=== PATIENT | female | born 1970 | race Caucasian/White ===

== ENCOUNTER → 2016-10-20 | Outpatient (CLI) | payer OTHER ==
[~2016-10-20] MED LIST: ASPI-515 PO; DOCU100C8 PO; FEXO180T72 PO; FURO20TA3 PO; LEVO75TA5 PO; OXYC5TAB3 PO; PANT40TA3 PO; POTA10CA PO; POTA10TA11 PO; SERT100T5 PO; WARF2.5T73 PO
== END | disposition home or self-care (01) ==
LOC: CFH 08:51
PROVIDERS: ATTEND Internal Medicine Cardiovascular Disease
DX: I08.3 Combined rheumatic disorders of mitral, aortic and tricuspid valves (principal); Q21.2 Atrioventricular septal defect; Z95.2 Presence of prosthetic heart valve
CPT/HCPCS: 93306

== ENCOUNTER 2016-11-21 11:13 | Emergency (ER) | payer OTHER ==
[~2016-11-21] VITALS: Ht 157.5 cm; Wt 91.9 kg
[~2016-11-21 11:13] MED LIST changes: +DOCU100C33 PO; -DOCU100C8 PO
[2016-11-21 11:14] VITALS: BP 136/84
== END 2016-11-21 14:13 | disposition home or self-care (01) ==
LOC: ED 14:00
DX: B34.9 Viral infection, unspecified (principal); Z88.2 Allergy status to sulfonamides
CPT/HCPCS: 71020; 93005; 99284

== ENCOUNTER 2017-04-28 11:30 | Inpatient (IN) | payer OTHER ==
[~2017-04-28] VITALS: Ht 160 cm; Wt 94.0 kg
[2017-04-28 12:37] LABS: MICROSCOPIC NOT IND
[2017-04-28 12:37] LABS: BASOPHILS # (AUTO) 0.03 x10^3/uL (0-0.1); BASOPHILS % (AUTO) 0 % (0-1); EOSINOPHILS # (AUTO) 0.17 x10^3/uL (0-0.4); EOSINOPHILS % (AUTO) 2 % (1-7); LYMPHOCYTES # (AUTO) 2.22 x10^3/uL (1-3.4); LYMPHOCYTES % (AUTO) 30 % (22-44); MD NO; MEAN CORPUSCULAR HEMOGLOBIN 26.2 pg (27.0-34.8); MEAN CORPUSCULAR HGB CONC 32.7 g/dL (32.4-35.8); MEAN CORPUSCULAR VOLUME 80.2 fL (80-100); MEAN PLATELET VOLUME 8.5 fL (7.4-10.4); MONOCYTES # (AUTO) 0.57 x10^3/uL (0.2-0.8); MONOCYTES % (AUTO) 8 % (2-9); NEUTROPHILS # (AUTO) 4.44 x10^3/uL (1.8-6.8); NEUTROPHILS % (AUTO) 60 % (42-75); PLATELET COUNT 321 x10^3/uL (130-400); RED BLOOD COUNT 4.22 x10^6/uL (3.82-5.3); RED CELL DISTRIBUTION WIDTH 16.6 % (9.6-15.2)
[2017-04-28 12:39] LABS: HCG UR SG 1.025 (1.003-1.030)
[2017-04-28 12:40] LABS: INTERNATIONAL NORMALIZED RATIO 1.02 (0.93-1.1); PROTHROMBIN TIME 10.5 Seconds (9.6-11.5)
[2017-04-28 12:47] LABS: CHLORIDE 109 mmol/L (98-107)
[2017-04-28 12:56] LABS: ALANINE AMINOTRANSFERASE 26 U/L (12-78); ALBUMIN 3.6 g/dL (3.4-5.0); ALKALINE PHOSPHATASE 68 U/L (45-117); ANION GAP 8 mmol/L (5-15); BILIRUBIN,TOTAL 0.3 mg/dL (0.2-1.0); CALCIUM 8.3 mg/dL (8.5-10.1); CREATININE 0.71 mg/dL (0.55-1.02); TOTAL PROTEIN 7.3 g/dL (6.4-8.2)
[2017-04-28 12:58] LABS: HEMOGLOBIN A1C 6.4 % (4.2-6.3)
[2017-04-29 05:12] VITALS: BP_SYST 134; BP_SYST 135; BP_DIAS 82; BP_DIAS 87
[2017-04-29] MEDS ORDERED: ALBUMIN HUMAN 5% 500 ML IV PRN (05:30)
[2017-04-29] MEDS ORDERED: CHLORHEXIDINE 15 ML BOTTLE MM SCH ×2 (06:00→09:00)
[2017-04-29] MEDS: INSULIN LISPRO 100 UNITS/ML, PEN SQ-INSULIN SCH ×7 (06:04→22:35)
[2017-04-29] MEDS: SODIUM CHLORIDE FLUSH 10ML SYR IVF SCH ×4 (06:07→19:30)
[2017-04-29] MEDS ORDERED: MIDAZOLAM 10MG/2 ML ONE (06:40)
[2017-04-29] MEDS ORDERED: FENTANYL PF 1000 MCG/20ML ONE (06:49)
[2017-04-29] MEDS ORDERED: VASOPRESSIN 50 UNIT in SODIUM CHLORIDE 0.9% 250 ML IV PRN (07:22)
[2017-04-29] MEDS ORDERED: PHENYLEPHRINE 10 MG in SODIUM CHLORIDE 0.9% 249 ML IV PRN ×2 (07:22→07:30)
[2017-04-29] MEDS ORDERED: NITROGLYCERIN/D5W PMX 240 ML IV PRN (07:22)
[2017-04-29] MEDS ORDERED: DEXMEDETOMIDINE 200 MCG in SODIUM CHLORIDE 0.9% 48 ML IV PRN (07:22)
[2017-04-29] MEDS ORDERED: DOBUTAMINE 250 MG in SODIUM CHLORIDE 0.9% 230 ML IV PRN (07:22)
[2017-04-29] MEDS ORDERED: REGULAR INSULIN 62.5 UNITS in SODIUM CHLORIDE 0.9% 249.375 ML IV PRN ×2 (07:22→07:30)
[2017-04-29] MEDS ORDERED: ONDANSETRON 2MG/ML, 2ML IVPush PRN (07:30)
[2017-04-29] MEDS ORDERED: MIDAZOLAM 1 MG/ML, 5ML IVPush PRN (07:30)
[2017-04-29] MEDS ORDERED: HYDROcodone/APAP 5/325 TABLET PO PRN (07:30)
[2017-04-29] MEDS ORDERED: INSULIN REGULAR 100 UNITS/ML, 3ML VIAL IVPush PRN (07:30)
[2017-04-29] MEDS ORDERED: DEXTROSE 4 GM TAB.CHEW PO PRN (07:30)
[2017-04-29] MEDS ORDERED: FENTANYL PF 100 MCG/2ML IVPush PRN (07:30)
[2017-04-29] MEDS ORDERED: ACETAMINOPHEN 650 MG SUPP PR PRN (07:30)
[2017-04-29] MEDS ORDERED: DEXMEDETOMIDINE 200 MCG in SODIUM CHLORIDE 0.9% 48 ML IV SCH (07:30)
[2017-04-29] MEDS ORDERED: GLUCAGON 1 MG IM PRN (07:30)
[2017-04-29] MEDS ORDERED: HYDROcodone/APAP 10/325 MG TABLET PO PRN (07:30)
[2017-04-29] MEDS ORDERED: POTASSIUM CHLORIDE 80 MEQ, SODIUM BICARBONATE 8.4% 10 MEQ, MAGNESIUM SULFATE 0.5 GM, LI... IV PRN (07:30)
[2017-04-29] MEDS ORDERED: EPINEPHRINE 2 MG in SODIUM CHLORIDE 0.9% 248 ML IV SCH (07:30)
[2017-04-29] MEDS ORDERED: VANCOMYCIN 1,400 MG in SODIUM CHLORIDE 0.9% 250 ML IV PRN (07:30)
[2017-04-29] MEDS ORDERED: ACETAMINOPHEN 325 MG TABLET PO PRN (07:30)
[2017-04-29] MEDS ORDERED: DEXTROSE 50%, 50ML SYRINGE IVPush PRN (07:30)
[2017-04-29] MEDS ORDERED: PROCHLORPERAZINE 5 MG/ML, 2ML IVPush PRN (07:30)
[2017-04-29] MEDS ORDERED: BISACODYL 10 MG SUPP PR PRN (07:30)
[2017-04-29] MEDS ORDERED: BISACODYL 5 MG EC TABLET PO PRN (07:30)
[2017-04-29] MEDS ORDERED: LACTATED RINGERS 500 ML IV PRN (07:30)
[2017-04-29] MEDS ORDERED: CEFUROXIME 1.5 GM in SODIUM CHLORIDE 0.9% 50 ML IVPB PRN (07:30)
[2017-04-29] MEDS ORDERED: EPINEPHRINE 2 MG in SODIUM CHLORIDE 0.9% 248 ML IV PRN (07:30)
[2017-04-29] MEDS ORDERED: morphine SULFATE 10 MG/ML, 1ML IVPush PRN (07:30)
[2017-04-29] MEDS ORDERED: MANNITOL PMX 20% 500 ML IVPB PRN (07:30)
[2017-04-29] MEDS: MUPIROCIN OINT 2%, 22GM NAS SCH ×2 (09:00→19:23)
[2017-04-29] MEDS ORDERED: MUPIROCIN OINT 2%, 22GM TP SCH (09:00)
[2017-04-29] MEDS: DOCUSATE 100 MG CAPSULE PO SCH ×2 (09:00→19:23)
[2017-04-29] MEDS ORDERED: SODIUM CHLORIDE 0.9% 1,000 ML IV PRN (10:00)
[2017-04-29] MEDS ORDERED: ROCURONIUM 10 MG/ML,10ML ONE (10:29)
[2017-04-29] MEDS ORDERED: PROPOFOL 10 MG/ML, 20ML ONE (10:29)
[2017-04-29] MEDS ORDERED: PROTAMINE SULFATE 10 MG/ML, 25ML ONE ×2 (10:30)
[2017-04-29] MEDS ORDERED: CALCIUM CHLORIDE 10%, 10ML SYR ONE ×2 (11:16)
[2017-04-29] MEDS: KSCALE TO 4.5 IV SCH ×2 (12:30→18:30)
[2017-04-29 12:41] LABS: GLUCOSE BY BLOOD GAS ANALYZER 157 mg/dL (70-110); POTASSIUM BY BLOOD GAS ANALYZR 3.3 mmol/L (3.6-5.5)
[2017-04-29] MEDS: SODIUM BICARB 8.4%, 50ML SYRINGE IV PRN ×5 (12:47→18:29)
[2017-04-29 12:51] LABS: INTERNATIONAL NORMALIZED RATIO 1.15 (0.93-1.1); PROTHROMBIN TIME 11.8 Seconds (9.6-11.5)
[2017-04-29] MEDS ORDERED: POTASSIUM CHLORIDE 30 MEQ in SODIUM CHLORIDE 0.9% 100 ML IV ONE (13:30)
[2017-04-29] MEDS: MAGNESIUM SULFATE 1 GM in SODIUM CHLORIDE 0.9% 50 ML IVPB SCH (13:55)
[2017-04-29] MEDS: CEFUROXIME 1.5 GM in SODIUM CHLORIDE 0.9% 50 ML IVPB SCH (19:21)
[2017-04-29] MEDS: OXYcodone IR 5MG TABLET PO PRN ×2 (19:23→22:38)
[2017-04-29] MEDS: VANCOMYCIN 1,400 MG in SODIUM CHLORIDE 0.9% 250 ML IVPB SCH (20:36)
[2017-04-29] MEDS: CHLORHEXIDINE 15 ML BOTTLE MM SCH (22:34)
[2017-04-30] MEDS: KSCALE TO 4.5 IV SCH ×2 (00:30→06:30)
[2017-04-30] MEDS: INSULIN LISPRO 100 UNITS/ML, PEN SQ-INSULIN SCH ×5 (02:16→21:30)
[2017-04-30 05:44] VITALS: BP 128/53
[2017-04-30] MEDS: CEFUROXIME 1.5 GM in SODIUM CHLORIDE 0.9% 50 ML IVPB SCH (06:10)
[2017-04-30] MEDS: OXYcodone IR 5MG TABLET PO PRN ×4 (06:10→22:52)
[2017-04-30 06:30] LABS: BASOPHILS # (AUTO) 0.01 x10^3/uL (0-0.1); BASOPHILS % (AUTO) 0 % (0-1); EOSINOPHILS % (AUTO) 0 % (1-7); LYMPHOCYTES # (AUTO) 1.32 x10^3/uL (1-3.4); LYMPHOCYTES % (AUTO) 8 % (22-44); MD NO; MEAN CORPUSCULAR HEMOGLOBIN 26.2 pg (27.0-34.8); MEAN CORPUSCULAR HGB CONC 32.5 g/dL (32.4-35.8); MEAN CORPUSCULAR VOLUME 80.5 fL (80-100); MEAN PLATELET VOLUME 8.8 fL (7.4-10.4); MONOCYTES # (AUTO) 1.05 x10^3/uL (0.2-0.8); MONOCYTES % (AUTO) 6 % (2-9); NEUTROPHILS # (AUTO) 15.26 x10^3/uL (1.8-6.8); NEUTROPHILS % (AUTO) 87 % (42-75); PLATELET COUNT 233 x10^3/uL (130-400); RED BLOOD COUNT 3.59 x10^6/uL (3.82-5.3); RED CELL DISTRIBUTION WIDTH 16.9 % (9.6-15.2)
[2017-04-30 06:35] LABS: INTERNATIONAL NORMALIZED RATIO 1.06 (0.93-1.1); PROTHROMBIN TIME 10.9 Seconds (9.6-11.5)
[2017-04-30 06:37] LABS: ANION GAP 6 mmol/L (5-15); CALCIUM 7.6 mg/dL (8.5-10.1); CHLORIDE 109 mmol/L (98-107); CREATININE 0.69 mg/dL (0.55-1.02)
[2017-04-30] MEDS ORDERED: KETOROLAC 30 MG/1 ML IVPush PRN (07:00)
[2017-04-30] MEDS ORDERED: WARFARIN MECH. VALVE PROTOCOL 2.5 to 3.5 XX PRN (08:00)
[2017-04-30] MEDS ORDERED: POTASSIUM CHLORIDE 20 MEQ TAB.ER.PRT PO SCH (08:00)
[2017-04-30] MEDS ORDERED: MAGNESIUM HYDROXIDE 8%, 30ML UDC PO PRN (08:00)
[2017-04-30] MEDS: VANCOMYCIN 1,400 MG in SODIUM CHLORIDE 0.9% 250 ML IVPB SCH (08:37)
[2017-04-30] MEDS: LEVOTHYROXINE 75 MCG TABLET PO SCH (08:56)
[2017-04-30] MEDS: SODIUM CHLORIDE FLUSH 10ML SYR IVF SCH ×2 (08:57→22:27)
[2017-04-30] MEDS: MUPIROCIN OINT 2%, 22GM NAS SCH ×2 (08:58→21:00)
[2017-04-30] MEDS: ASPIRIN 81 MG TABLET EC PO SCH (08:58)
[2017-04-30] MEDS: DOCUSATE 100 MG CAPSULE PO SCH ×2 (08:58→22:28)
[2017-04-30] MEDS: SERTRALINE 100MG TABLET PO SCH (08:58)
[2017-04-30] MEDS ORDERED: FUROSEMIDE 40 MG/4 ML IV SCH (09:00)
[2017-04-30] MEDS ORDERED: WARFARIN BIOPROSTHETIC VALVE PROTOCOL 2-3 XX SCH (09:00)
[2017-04-30] MEDS: MAGNESIUM SULFATE 1 GM in SODIUM CHLORIDE 0.9% 50 ML IVPB SCH (09:24)
[2017-04-30] MEDS: CHLORHEXIDINE 15 ML BOTTLE MM SCH ×2 (09:24→22:28)
[2017-04-30] MEDS: WARFARIN HIGH DOSE PROTOCOL XX SCH (12:00)
[2017-04-30] MEDS: HEPARIN 25,000 UNITS/500ML PMX 500 ML IV PRN (12:15)
[2017-04-30] MEDS ORDERED: WARFARIN 10 MG TABLET PO-COUM ONE (18:00)
[2017-04-30 19:20] VITALS: BP 121/71
[2017-05-01 00:19] VITALS: BP 122/76
[2017-05-01] MEDS: INSULIN LISPRO 100 UNITS/ML, PEN SQ-INSULIN SCH ×6 (01:30→21:54)
[2017-05-01] MEDS: LEVOTHYROXINE 75 MCG TABLET PO SCH (05:20)
[2017-05-01 05:43] LABS: BASOPHILS # (AUTO) 0.02 x10^3/uL (0-0.1); BASOPHILS % (AUTO) 0 % (0-1); EOSINOPHILS % (AUTO) 0 % (1-7); LYMPHOCYTES # (AUTO) 1.58 x10^3/uL (1-3.4); LYMPHOCYTES % (AUTO) 10 % (22-44); MD NO; MEAN CORPUSCULAR HEMOGLOBIN 26.2 pg (27.0-34.8); MEAN CORPUSCULAR HGB CONC 32.3 g/dL (32.4-35.8); MEAN CORPUSCULAR VOLUME 81.2 fL (80-100); MONOCYTES # (AUTO) 1.41 x10^3/uL (0.2-0.8); MONOCYTES % (AUTO) 9 % (2-9); NEUTROPHILS # (AUTO) 13.49 x10^3/uL (1.8-6.8); NEUTROPHILS % (AUTO) 82 % (42-75); PLATELET COUNT 202 x10^3/uL (130-400); RED BLOOD COUNT 3.35 x10^6/uL (3.82-5.3); RED CELL DISTRIBUTION WIDTH 16.3 % (9.6-15.2)
[2017-05-01 05:52] LABS: ANION GAP 4 mmol/L (5-15); CALCIUM 8.1 mg/dL (8.5-10.1); CHLORIDE 103 mmol/L (98-107); CREATININE 0.58 mg/dL (0.55-1.02)
[2017-05-01 06:06] LABS: INTERNATIONAL NORMALIZED RATIO 1.05 (0.93-1.1); PROTHROMBIN TIME 10.8 Seconds (9.6-11.5)
[2017-05-01] MEDS: HEPARIN 5,000 UNITS/ML, 1ML IV PRN ×3 (07:23→22:57)
[2017-05-01 07:58] VITALS: BP 132/83
[2017-05-01] MEDS ORDERED: AMIODARONE 150 MG in DEXTROSE 5% 100 ML IV STA ×2 (08:29→12:31)
[2017-05-01] MEDS ORDERED: AMIODARONE 900 MG in DEXTROSE 5% 482 ML IV PRN (08:30)
[2017-05-01] MEDS: FILTER 0.22 MICRON FOR AMIODARONE IV PRN (09:22)
[2017-05-01] MEDS: SERTRALINE 100MG TABLET PO SCH (09:23)
[2017-05-01] MEDS: CHLORHEXIDINE 15 ML BOTTLE MM SCH (09:23)
[2017-05-01] MEDS: POTASSIUM CHLORIDE 20 MEQ TAB.ER.PRT PO SCH ×2 (09:23→19:51)
[2017-05-01] MEDS: FUROSEMIDE 40 MG/4 ML IV SCH ×2 (09:23→19:51)
[2017-05-01] MEDS: ASPIRIN 81 MG TABLET EC PO SCH (09:24)
[2017-05-01] MEDS: SODIUM CHLORIDE FLUSH 10ML SYR IVF SCH ×2 (09:24→19:52)
[2017-05-01] MEDS: DOCUSATE 100 MG CAPSULE PO SCH ×2 (09:24→19:52)
[2017-05-01] MEDS: MUPIROCIN OINT 2%, 22GM NAS SCH ×2 (09:24→22:57)
[2017-05-01] MEDS: HEPARIN 25,000 UNITS/500ML PMX 500 ML IV PRN (09:28)
[2017-05-01] MEDS: WARFARIN HIGH DOSE PROTOCOL XX SCH (12:00)
[2017-05-01] MEDS ORDERED: AMIODARONE 50 MG/ML, 3ML IVPush ONE (12:28)
[2017-05-01] MEDS: MAGNESIUM SULFATE 1 GM in SODIUM CHLORIDE 0.9% 50 ML IVPB SCH (12:42)
[2017-05-01 13:53] VITALS: BP 106/72
[2017-05-01] MEDS ORDERED: WARFARIN 10 MG TABLET PO-COUM ONE (18:00)
[2017-05-01 19:04] VITALS: BP 135/64
[2017-05-01] MEDS ORDERED: AMIODARONE 150 MG in DEXTROSE 5% 100 ML IV ONE (23:00)
[2017-05-02] MEDS: INSULIN LISPRO 100 UNITS/ML, PEN SQ-INSULIN SCH ×2 (01:30→05:30)
[2017-05-02 01:55] VITALS: BP 117/80
[2017-05-02] MEDS: HEPARIN 25,000 UNITS/500ML PMX 500 ML IV PRN (05:46)
[2017-05-02] MEDS: LEVOTHYROXINE 75 MCG TABLET PO SCH ×2 (05:47→08:39)
[2017-05-02] MEDS: AMIODARONE 900 MG in DEXTROSE 5% 482 ML IV SCH ×2 (05:53→21:57)
[2017-05-02 06:06] LABS: BASOPHILS # (AUTO) 0.03 x10^3/uL (0-0.1); BASOPHILS % (AUTO) 0 % (0-1); EOSINOPHILS # (AUTO) 0.01 x10^3/uL (0-0.4); EOSINOPHILS % (AUTO) 0 % (1-7); LYMPHOCYTES # (AUTO) 2.31 x10^3/uL (1-3.4); LYMPHOCYTES % (AUTO) 17 % (22-44); MD NO; MEAN CORPUSCULAR HEMOGLOBIN 26.2 pg (27.0-34.8); MEAN CORPUSCULAR HGB CONC 32.7 g/dL (32.4-35.8); MEAN CORPUSCULAR VOLUME 80.3 fL (80-100); MEAN PLATELET VOLUME 8.9 fL (7.4-10.4); MONOCYTES # (AUTO) 1.18 x10^3/uL (0.2-0.8); MONOCYTES % (AUTO) 9 % (2-9); NEUTROPHILS # (AUTO) 10.32 x10^3/uL (1.8-6.8); NEUTROPHILS % (AUTO) 75 % (42-75); PLATELET COUNT 199 x10^3/uL (130-400); RED BLOOD COUNT 3.33 x10^6/uL (3.82-5.3); RED CELL DISTRIBUTION WIDTH 16.4 % (9.6-15.2)
[2017-05-02 06:17] LABS: ANION GAP 5 mmol/L (5-15); CALCIUM 7.9 mg/dL (8.5-10.1); CHLORIDE 103 mmol/L (98-107); CREATININE 0.54 mg/dL (0.55-1.02)
[2017-05-02 06:18] LABS: INTERNATIONAL NORMALIZED RATIO 2.02 (0.93-1.1); PROTHROMBIN TIME 20.5 Seconds (9.6-11.5)
[2017-05-02 07:15] VITALS: BP 122/83
[2017-05-02] MEDS: HEPARIN 5,000 UNITS/ML, 1ML IV PRN ×2 (07:40→23:13)
[2017-05-02] MEDS: SERTRALINE 100MG TABLET PO SCH (08:38)
[2017-05-02] MEDS: FUROSEMIDE 40 MG/4 ML IV SCH ×2 (08:38→21:07)
[2017-05-02] MEDS: ASPIRIN 81 MG TABLET EC PO SCH (08:38)
[2017-05-02] MEDS: POTASSIUM CHLORIDE 20 MEQ TAB.ER.PRT PO SCH ×2 (08:38→21:07)
[2017-05-02] MEDS: DOCUSATE 100 MG CAPSULE PO SCH ×2 (08:38→21:07)
[2017-05-02] MEDS: MUPIROCIN OINT 2%, 22GM NAS SCH ×2 (08:39→21:08)
[2017-05-02] MEDS: WARFARIN HIGH DOSE PROTOCOL XX SCH (08:39)
[2017-05-02] MEDS: SODIUM CHLORIDE FLUSH 10ML SYR IVF SCH ×2 (08:39→21:08)
[2017-05-02 15:27] VITALS: BP 106/74
[2017-05-02] MEDS ORDERED: HEPARIN 25,000 UNITS/500ML PMX 500 ML IV PRN (16:05)
[2017-05-02] MEDS ORDERED: WARFARIN 5 MG TABLET PO-COUM ONE (18:00)
[2017-05-02 20:45] VITALS: BP 107/71
[2017-05-02] MEDS: FILTER 0.22 MICRON FOR AMIODARONE IV PRN (22:06)
[2017-05-03 01:16] VITALS: BP 114/79
[2017-05-03 05:07] LABS: BASOPHILS # (AUTO) 0.03 x10^3/uL (0-0.1); BASOPHILS % (AUTO) 0 % (0-1); EOSINOPHILS # (AUTO) 0.08 x10^3/uL (0-0.4); EOSINOPHILS % (AUTO) 1 % (1-7); LYMPHOCYTES # (AUTO) 2.77 x10^3/uL (1-3.4); LYMPHOCYTES % (AUTO) 24 % (22-44); MD NO; MEAN CORPUSCULAR HEMOGLOBIN 26.1 pg (27.0-34.8); MEAN CORPUSCULAR HGB CONC 32.4 g/dL (32.4-35.8); MEAN CORPUSCULAR VOLUME 80.5 fL (80-100); MONOCYTES # (AUTO) 1.03 x10^3/uL (0.2-0.8); MONOCYTES % (AUTO) 9 % (2-9); NEUTROPHILS # (AUTO) 7.81 x10^3/uL (1.8-6.8); NEUTROPHILS % (AUTO) 67 % (42-75); PLATELET COUNT 251 x10^3/uL (130-400); RED BLOOD COUNT 3.37 x10^6/uL (3.82-5.3); RED CELL DISTRIBUTION WIDTH 16.1 % (9.6-15.2)
[2017-05-03 05:19] LABS: ANION GAP 5 mmol/L (5-15); CALCIUM 8.1 mg/dL (8.5-10.1); CHLORIDE 100 mmol/L (98-107)
[2017-05-03 05:22] LABS: CREATININE 0.68 mg/dL (0.55-1.02)
[2017-05-03 05:26] LABS: INTERNATIONAL NORMALIZED RATIO 2.71 (0.93-1.1); PROTHROMBIN TIME 27.4 Seconds (9.6-11.5)
[2017-05-03] MEDS: LEVOTHYROXINE 75 MCG TABLET PO SCH (05:37)
[2017-05-03] MEDS: HEPARIN 5,000 UNITS/ML, 1ML IV PRN (05:38)
[2017-05-03 06:35] VITALS: BP 110/80
[2017-05-03] MEDS ORDERED: POTASSIUM CHLORIDE 20 MEQ TAB.ER.PRT PO ONE (07:30)
[2017-05-03] MEDS: POTASSIUM CHLORIDE 20 MEQ TAB.ER.PRT PO SCH ×2 (09:00→20:14)
[2017-05-03] MEDS: MUPIROCIN OINT 2%, 22GM NAS SCH ×2 (09:00→20:15)
[2017-05-03] MEDS: DOCUSATE 100 MG CAPSULE PO SCH ×2 (09:02→20:14)
[2017-05-03] MEDS: ASPIRIN 81 MG TABLET EC PO SCH (09:02)
[2017-05-03] MEDS: SODIUM CHLORIDE FLUSH 10ML SYR IVF SCH ×2 (09:03→20:15)
[2017-05-03] MEDS: FUROSEMIDE 40 MG/4 ML IV SCH ×2 (10:22→20:16)
[2017-05-03] MEDS: AMIODARONE 200 MG TABLET PO SCH ×2 (10:38→20:15)
[2017-05-03] MEDS: SERTRALINE 100MG TABLET PO SCH (10:38)
[2017-05-03] MEDS: WARFARIN HIGH DOSE PROTOCOL XX SCH (11:39)
[2017-05-03 13:22] VITALS: BP 101/65
[2017-05-03] MEDS: AMIODARONE 900 MG in DEXTROSE 5% 482 ML IV SCH (15:02)
[2017-05-03] MEDS ORDERED: WARFARIN 5 MG TABLET PO-COUM ONE (18:00)
[2017-05-03 19:16] VITALS: BP 108/70
[2017-05-04 00:41] VITALS: BP 96/57
[2017-05-04] MEDS: LEVOTHYROXINE 75 MCG TABLET PO SCH (05:00)
[2017-05-04 05:37] LABS: INTERNATIONAL NORMALIZED RATIO 3.19 (0.93-1.1); PROTHROMBIN TIME 32.1 Seconds (9.6-11.5)
[2017-05-04 05:38] LABS: BASOPHILS # (AUTO) 0.03 x10^3/uL (0-0.1); BASOPHILS % (AUTO) 0 % (0-1); EOSINOPHILS # (AUTO) 0.17 x10^3/uL (0-0.4); EOSINOPHILS % (AUTO) 2 % (1-7); LYMPHOCYTES # (AUTO) 2.45 x10^3/uL (1-3.4); LYMPHOCYTES % (AUTO) 24 % (22-44); MD NO; MEAN CORPUSCULAR HGB CONC 32.6 g/dL (32.4-35.8); MEAN CORPUSCULAR VOLUME 79.9 fL (80-100); MONOCYTES # (AUTO) 1.02 x10^3/uL (0.2-0.8); MONOCYTES % (AUTO) 10 % (2-9); NEUTROPHILS # (AUTO) 6.67 x10^3/uL (1.8-6.8); NEUTROPHILS % (AUTO) 65 % (42-75); PLATELET COUNT 278 x10^3/uL (130-400); RED BLOOD COUNT 3.51 x10^6/uL (3.82-5.3); RED CELL DISTRIBUTION WIDTH 15.8 % (9.6-15.2)
[2017-05-04 05:43] LABS: ANION GAP 6 mmol/L (5-15); CALCIUM 8.4 mg/dL (8.5-10.1); CHLORIDE 102 mmol/L (98-107)
[2017-05-04] MEDS: DOCUSATE 100 MG CAPSULE PO SCH (07:45)
[2017-05-04] MEDS: WARFARIN HIGH DOSE PROTOCOL XX SCH (07:45)
[2017-05-04] MEDS ORDERED: AMIO200T42 PO (07:50)
[2017-05-04] MEDS ORDERED: DOCU-131 PO (07:50)
[2017-05-04] MEDS ORDERED: WARF2TAB PO-COUM (07:50)
[2017-05-04] MEDS ORDERED: POTA20TA6 PO (07:50)
[2017-05-04] MEDS ORDERED: FURO40TA6 PO (07:50)
[2017-05-04] MEDS: ASPIRIN 81 MG TABLET EC PO SCH (08:55)
[2017-05-04] MEDS: AMIODARONE 200 MG TABLET PO SCH (08:55)
[2017-05-04] MEDS: POTASSIUM CHLORIDE 20 MEQ TAB.ER.PRT PO SCH (08:55)
[2017-05-04] MEDS: SODIUM CHLORIDE FLUSH 10ML SYR IVF SCH (08:55)
[2017-05-04] MEDS ORDERED: FUROSEMIDE 40 MG TABLET PO SCH (09:00)
[2017-05-04 09:08] VITALS: BP 101/68
[2017-05-04] MEDS: SERTRALINE 100MG TABLET PO SCH (09:58)
[2017-05-04] MEDS ORDERED: WARFARIN 2 MG TABLET PO-COUM ONE (18:00)
== END 2017-05-04 12:07 | disposition home or self-care (01) | DRG 219 ==
LOC: 5SO 04-29 04:59 → EDSTATUS 04-29 07:30 → CSU 04-29 08:27 → CCU 04-29 12:16 → 5SO 04-30 18:19
PROVIDERS: ADMIT Thoracic Surgery (Cardiothoracic Vascular Surgery); ATTEND Thoracic Surgery (Cardiothoracic Vascular Surgery)
PROC: B246ZZ4 Ultrasonography of Right and Left Heart, Transesophageal (ICD-10-PCS; 2017-04-29)
PROC: 02RG0JZ Replacement of Mitral Valve with Synthetic Substitute, Open Approach (ICD-10-PCS; principal; 2017-04-29 07:30)
DX: I08.3 Combined rheumatic disorders of mitral, aortic and tricuspid valves (principal); I46.9 Cardiac arrest, cause unspecified; D68.69 Other thrombophilia; I50.32 Chronic diastolic (congestive) heart failure; J98.11 Atelectasis; I11.0 Hypertensive heart disease with heart failure; E88.09 Other disorders of plasma-protein metabolism, not elsewhere classified; I48.0 Paroxysmal atrial fibrillation; D64.9 Anemia, unspecified; E03.9 Hypothyroidism, unspecified; F32.9 Major depressive disorder, single episode, unspecified; Z79.01 Long term (current) use of anticoagulants; Z86.14 Personal history of Methicillin resistant Staphylococcus aureus infection; Z87.74 Personal history of (corrected) congenital malformations of heart and circulatory system; Z87.891 Personal history of nicotine dependence
CPT/HCPCS: 36415; 36600; 71045; 71046; 80048; 80053; 81003; 81025; 82040; 82330; 82800; 82803; 82810; 82947; 82962; 83036; 83735; 84132; 84295; 85014; 85018; 85025; 85049; 85347; 85520; 85610; 85730; 86850; 86900; 86923; 87081; 88300; 88305; 93005; 93312; 93321; 93325; 94002; 94003; 94150; C1768; J0697; J1644; J1815; J1940; J2250; J2405; J2704; J2720; J3010; J3370; J3475; J3480; J3490; P9045; P9047; C1751; J0171; J0282; J2270; J2370; J2930; J7050; J7060

== ENCOUNTER → 2018-01-23 | Outpatient (CLI) | payer OTHER ==
[~2018-01-23] MED LIST changes: +AMIO200T42 PO; +DOCU-131 PO; +FURO40TA6 PO; +POTA20TA6 PO; +WARF2TAB PO-COUM
== END | disposition home or self-care (01) ==
LOC: CFH 08:58
PROVIDERS: ATTEND Internal Medicine Cardiovascular Disease
DX: Q24.9 Congenital malformation of heart, unspecified (principal)
CPT/HCPCS: 93306